=== PATIENT | female | born 1975 | race Caucasian/White ===

== ENCOUNTER 2020-11-24 09:53 | Emergency (ER) | payer MEDICAID ==
[~2020-11-24] VITALS: Ht 162.6 cm; Wt 51.8 kg
[2020-11-24 09:56] VITALS: BP 111/78
--- NOTE | 2020-11-24 11:20 | NUR ---
RECEIVED REPORT FROM YANET FERREIRA. PT RESTING ON [place]. KIRK. PT STATES SHE HAS HAD LOWER R DENTAL PAIN SINCE AUGUST. ON ASSESSMENT PT HAS BLACK TEETH TO R LOWER TEETH.
[2020-11-24] MEDS ORDERED: ACETAMINOPHEN 500 MG TABLET ONE (11:35)
[2020-11-24] MEDS ORDERED: ACETAMINOPHEN 500 MG TABLET PO ONE (12:00)
== END 2020-11-24 12:12 | disposition home or self-care (01) ==
LOC: ED 10:45
DX: K08.89 Other specified disorders of teeth and supporting structures (principal); F17.210 Nicotine dependence, cigarettes, uncomplicated
CPT/HCPCS: 99406